=== PATIENT | female | born 1970 | race Caucasian/White ===

== ENCOUNTER 2024-03-11 07:56 | Outpatient (REF) | payer BC, SELFPAY | END 2024-03-11 07:57 | disposition home or self-care (01) | LOC: NCHCN 07:56 | PROVIDERS: PCP Family Medicine; Visit Provider Family Medicine | DX: R30.0 Dysuria (principal); R82.89 Other abnormal findings on cytological and histological examination of urine | CPT/HCPCS: 87086 ==

== ENCOUNTER 2024-03-29 09:00 | Outpatient (REF) | payer BC, SELFPAY | END 2024-03-29 09:01 | disposition home or self-care (01) | LOC: NCHCN 09:00 | PROVIDERS: PCP Family Medicine; Visit Provider Nurse Practitioner Family | DX: R30.0 Dysuria (principal); B96.29 Other Escherichia coli [E. coli] as the cause of diseases classified elsewhere | CPT/HCPCS: 87077; 87086; 87186 ==